=== PATIENT | female | born 1980 | race Caucasian/White ===

== ENCOUNTER 2020-09-30 11:51 | Emergency (ER) | payer OTHER, BC, SELFPAY ==
--- NOTE | ~2020-09-30 | CT_ITS ---
EXAMINATION: CT brain wo con EXAM DATE: 09/30/2020 12:05 INDICATION: Traumatic head injury, pressure and difficulty concentrating . Right black eye. Nausea. TECHNIQUE: Spiral CT of the head was performed without contrast. Axial, coronal and sagittal images were reviewed. The dose-length product (DLP) for this examination was 605.33 mGy-cm. The exposure w as tailored according to patient size, and iterative reconstruction (ASIR) was used as additional dos e reduction technique. There is no prior study for comparison. FINDINGS: There is no acute intraparenchymal hemorrhage. No evidence of intraparenchymal brain mass lesion. No evidence of acute infarction. There is no mass effect or midline shift. The ventricles are normal in size. There are no extra-axial collections. There are no acute calvarial fractures. T he orbits are unremarkable. Soft tissue is unremarkable. The visualized sinuses and mastoid air feliberto ls are well aerated. IMPRESSION: 1. Normal head CT examination. Reviewed, dictated and finalized at location [facility]
--- NOTE | 2020-09-30 11:57 | PC.NURSE ---
Order for CT Placed after conversation with MARTA Moralez and verbal order for CT Brain w/o contrast was received and read back to him. I then called the charge nurse to notify her of the order I received and placed.
--- NOTE | 2020-09-30 12:01 | PC.NURSE ---
Patient taken to CT at this time.
[2020-09-30 12:15] VITALS: BP 137/97; PULSE 86; RESP 16; TEMP 37.1; O2SAT 99
--- NOTE | 2020-09-30 12:41 | ED.HA ---
HPI - Headache General Chief Complaint: Head Injury Stated Complaint: pressure in her head, difficulty focusing, Time Seen by Provider: 09/30/20 12:27 Source: patient Mode of arrival: ambulatory Limitations: no limitations History of Present Illness HPI Narrative: Patient is a 40-year-old female complaining of head pressure, 6 out of 10, generalized, nonradiating accompanied by nausea and dizziness started 2 days ago. Patient states that she hit her head approximately 5 days ago causing her to have a bruise on her right frontal head and right periorbital area. Patient states that her dog hit the right side of her face as she was bending over felt dizzy right after, seeing stars . Denies any loss of consciousness. Denies any speech or visual disturbance, weakness, numbness or unsteady gait. Denies any neck stiffness or fever. Denies any head injury. Related Data Home Medications Medication Instructions Recorded Confirmed alprazolam 0.25 mg tablet 0.25 mg PO TID PRN 01/12/20 07/12/20 meloxicam 15 mg tablet 15 mg PO DAILY PRN 01/12/20 07/12/20 sulfasalazine 500 mg 1 gm PO BID tablet 01/12/20 07/12/20 tablet,delayed release Allergies Allergy/AdvReac Type Severity Reaction Status Date / Time No Known Allergies Allergy Unverified 08/09/19 09:57 Review of Systems Review of Systems: All systems reviewed & are unremarkable except as noted in HPI and below Constitutional: Constitutional: Denies body ache(s), Denies chills, Denies excessive sweating, Denies fatigue, Denies fever(s), Denies lethargy, Denies malaise, Denies weakness and Denies weight loss Eyes: Eyes: Denies blurry vision, Denies change in vision and Denies loss of vision ENT: Denies dizziness, Denies ear discharge, Denies headache(s), Denies lip swelling, Denies epistaxis, Denies nasal congestion, Denies neck pain, Denies throat swelling and Denies tongue swelling Cardiovascular: Cardiovascular: Denies chest pain, Denies chest pain at rest, Denies chest pain with activity, Denies diaphoresis, Denies rapid heart rate, Denies edema, Denies irregular heart rhythm, Denies lightheadedness, Denies palpitations, Denies dyspnea and Denies dyspnea on exertion Respiratory: Respiratory: Denies chest congestion, Denies cough, Denies hemoptysis, Denies dyspnea and Denies dyspnea on exertion Gastrointestinal: Gastrointestinal: Denies abdominal pain, Denies melena, Denies hematochezia, Denies diarrhea, Denies nausea, Denies vomiting and Denies hematemesis Musculoskeletal: Musculoskeletal: Denies abnormal gait, Denies deformity, Denies joint swelling, Denies limited range of motion, Denies neck pain and Denies numbness Neurologic: Denies Abnormal speech present, Denies abnormal gait, Denies confusion, Denies dizziness, Denies focal weakness, Denies loss of vision, Denies numbness, Denies Other visual disturbances, Denies Sensory deficit (Neuro) and Denies weakness Psychiatric: Psychiatric: Denies confusion, Denies depression, Denies auditory hallucinations, Denies homicidal ideation and Denies suicidal ideation Endocrine: Endocrine: Denies cold intolerance, Denies excessive sweating, Denies fatigue, Denies heat intolerance and Denies palpitations Hematologic/Lymphatic: Hematologic/Lymphatic: Denies easy bleeding and Denies easy bruising Allergic/Immunologic: Allergic/Immunologic: Denies lip swelling, Denies throat swelling and Denies tongue swelling [facility] Past Medical History Medical History (Updated 09/30/20 @ 14:06 by Ronaldo Oliveira MD) ADHD (attention deficit hyperactivity disorder), inattentive type Allergic asthma with acute exacerbation Chronic anxiety Chronic bilateral low back pain with bilateral sciatica Exposure to COVID-19 virus Moderate persistent asthma, uncomplicated Family History Family History (Updated 09/09/19 @ 13:20 by DOCTOR UNKNOWN) Grandparent Hypertension Family history of elevated blood lipids Cerebrovascular accident Carcinoma of c
--- NOTE | 2020-09-30 13:45 | PC.NURSE ---
Called to patient's room, states that she really needs to go and cannot wait for blood work and IVF and IV pain medications. Reports has to pick up worker her son. States I didn't think it would be this big of a deal; I only came because my doctor and made me. My CT is fine, I'm sure I'm ok . Dr. Oliveira made aware.
--- NOTE | 2020-09-30 14:00 | PC.NURSE ---
Pt signs AMA form after this RN explained the risks. Pt encouraged to come back if dizziness, headache, or vomiting are unrelenting in nature and continue. Pt verbalizes understanding. Refuses assist to exit.
== END 2020-09-30 14:10 | disposition left against medical advice (07) ==
PROVIDERS: Emergency Provider Emergency Medicine; PCP Family Medicine
DX: S06.0X0A Concussion without loss of consciousness, initial encounter (principal); F90.9 Attention-deficit hyperactivity disorder, unspecified type; F41.9 Anxiety disorder, unspecified; J45.40 Moderate persistent asthma, uncomplicated; W54.1XXA Struck by dog, initial encounter
CPT/HCPCS: 70450; 99284

== ENCOUNTER 2020-11-09 06:54 | Outpatient (NON) | payer OTHER, SELFPAY ==
[2020-11-09 18:06] LABS: SARS-CoV-2 RNA PCR Negative
== END 2020-11-09 06:55 ==
LOC: ANHCOVIDDT 06:54
PROVIDERS: PCP Family Medicine; Visit Provider Family Medicine
DX: J01.00 Acute maxillary sinusitis, unspecified (principal); Z20.828 Contact with and (suspected) exposure to other viral communicable diseases
CPT/HCPCS: 87635; C9803; U0003

== ENCOUNTER → 2022-02-17 00:23 | Outpatient (CLI) | payer OTHER, SELFPAY ==
[2022-02-17 13:15] LABS: SARS-CoV-2 RNA PCR Negative
== END ==
PROVIDERS: PCP Family Medicine; Visit Provider Internal Medicine Gastroenterology
DX: Z01.812 Encounter for preprocedural laboratory examination (principal); Z20.822 Contact with and (suspected) exposure to COVID-19
CPT/HCPCS: C9803; U0003; U0005

== ENCOUNTER 2022-02-21 01:39 | Day surgery (SDC) | payer OTHER, SELFPAY ==
[2022-02-14 09:46] VITALS: BMI 25.1
--- NOTE | 2022-02-21 08:18 | WPDANESEPPF ---
Anes - Initial Pre Proc Eval Procedure: Operation Date: 02/21/22 10:30 Proposed Procedures p Esophagogastroduodenoscopy & Colonoscopy - Jesus Gan MD Date/Time: 02/21/22 08:18 Surgeon: Jesus Gan MD Pre Op Diagnosis: bloating, diarrhea, abdominal pain Patient Data Age: 41 Gender: F Height: 1.73 m Weight: 75 kg Allergies Allergy/AdvReac Type Severity Reaction Status Date / Time No Known Allergies Allergy Verified 02/21/22 09:22 Home Medications Medication Instructions Recorded Confirmed Type nebulizer accessories #1 each 03/29/20 02/21/22 Rx nebulizers #1 each 03/29/20 02/21/22 Rx peak flow meter #1 each 03/29/20 02/21/22 Rx albuterol sulfate 1.25 mg/3 mL 1.25 mg INHALATION Q4-6H PRN #180 04/27/21 02/21/22 Rx solution for nebulization ml duloxetine 30 mg capsule,delayed 30 mg PO DAILY #90 cap 04/27/21 02/21/22 Rx release albuterol sulfate 90 mcg/actuation 1 inh INHALATION Q4H PRN #8.5 g 07/05/21 02/21/22 Rx aerosol inhaler budesonide-formoterol HFA 160 2 puff INHALATION Q12H #10.2 g 10/04/21 02/21/22 Rx mcg-4.5 mcg/actuation aerosol inhaler Adderall XR 20 mg capsule,extended 20 mg PO DAILY #30 cap NS 01/25/22 02/21/22 Rx release Patient hx anesthesia problems: none Family hx anesthesia problems: none Results Review: All pre-operative results and documents have been reviewed as part of the pre-operative evaluation. [facility] Past Medical History Medical History (Updated 01/04/22 @ 11:22 by Jesus Gan MD) Abdominal pain Acute non-recurrent maxillary sinusitis ADHD (attention deficit hyperactivity disorder), inattentive type Allergic asthma with acute exacerbation Bloating Cellulitis, finger Chronic anxiety Chronic bilateral low back pain with bilateral sciatica Chronic depression Concussion without loss of consciousness, initial encounter COVID-19 (05/27/21) Diarrhea Exposure to COVID-19 virus Moderate persistent asthma, uncomplicated Nausea and vomiting Family History Family History Grandparent Hypertension Family history of malignant neoplasm of breast in first degree relative Family history of elevated blood lipids Cerebrovascular accident Carcinoma of colon, Onset Age: 78 Family history of malignant neoplasm of breast, Onset Age: 76 Diabetes mellitus Family history of hypercholesterolemia Family history of arthritis Family history of Alzheimer's disease Father Hypertension Patient's father is Mother Depression Hypertension Sibling Patient's brother is in good health Social History Social History Smoking status: Former smoker Tobacco type: cigarettes Second hand tobacco smoke exposure: No Alcohol intake: former Substance use type: does not use Living arrangements: alone Gender identity (if verbalized by the patient): Female Spiritual care concerns: No Anes - Eval Final PreProcedure Day of Procedure 02/21/22 08:18 Patient weight: normal Heart: regular rate and rhythm Lungs: clear to auscultation and normal air movement Airway: Mallampati scale class II Neurological: alert and oriented Last oral intake: >/= 8 hours ASA classification: II Emergent: no Anesthetic plan: proceed Anesthesia type and monitoring: general GIVS Results Review: All pre-operative results and documents have been reviewed as part of the pre-operative evaluation. Informed Consent: The patient's anesthetic plan and its attendant risks and benefits were discussed with the patient/family/POA. Questions were solicited and answers provided to the satisfaction of the patient/family/POA.
[2022-02-21 09:15] VITALS: BP 121/82; PULSE 73; RESP 18; TEMP 36.5; O2SAT 98; BMI 25.6
[2022-02-21] MEDS: LACTATED RINGERS 1,000 ML 150 ML IV CONT (09:39)
--- NOTE | 2022-02-21 09:55 | PM.HPGS ---
History of Present Illness History of Present Illness Consent: Risks, benefits, and alternatives have been discussed and questions answered. Patient agrees to proceed with procedure. Chief complaint: bloating, diarrhea, abdominal pain Narrative: Archana Jack is a 41 year old female with nausea and loose stools depending on her diet. Since last visit the nausea is better, tried second round of xifaxan with marginal benefit but still tends to have loose stools. Never had colonoscopy Review of Systems Constitutional: Constitutional: Denies headache(s) and Denies weakness Eyes: Eyes: Denies blurry vision ENT: Reports Normal hearing present, Denies headache(s) and Denies neck pain Cardiovascular: Cardiovascular: Denies chest pain and Denies dyspnea Respiratory: Respiratory: Denies dyspnea Gastrointestinal: Gastrointestinal: Reports no additional gastrointestinal complaints Genitourinary: Genitourinary: Denies dysuria Musculoskeletal: Musculoskeletal: Denies neck pain Integumentary/Breasts: Skin/Breast: Denies dry skin Neurologic: Reports Normal hearing present, Denies headache(s) and Denies weakness Psychiatric: Psychiatric: Denies anxiety Endocrine: Endocrine: Denies change in body appearance Hematologic/Lymphatic: Hematologic/Lymphatic: Denies easy bleeding Allergic/Immunologic: Allergic/Immunologic: Denies urticaria PMFSH Past Medical History Medical History (Updated 01/04/22 @ 11:22 by Jesus Gan MD) Abdominal pain Acute non-recurrent maxillary sinusitis ADHD (attention deficit hyperactivity disorder), inattentive type Allergic asthma with acute exacerbation Bloating Cellulitis, finger Chronic anxiety Chronic bilateral low back pain with bilateral sciatica Chronic depression Concussion without loss of consciousness, initial encounter COVID-19 (05/27/21) Diarrhea Exposure to COVID-19 virus Moderate persistent asthma, uncomplicated Nausea and vomiting Family History Family History Grandparent Hypertension Family history of malignant neoplasm of breast in first degree relative Family history of elevated blood lipids Cerebrovascular accident Carcinoma of colon, Onset Age: 78 Family history of malignant neoplasm of breast, Onset Age: 76 Diabetes mellitus Family history of hypercholesterolemia Family history of arthritis Family history of Alzheimer's disease Father Hypertension Patient's father is Mother Depression Hypertension Sibling Patient's brother is in good health Social History Social History Smoking status: Former smoker Tobacco type: cigarettes Second hand tobacco smoke exposure: No Alcohol intake: former Substance use type: does not use Living arrangements: alone Gender identity (if verbalized by the patient): Female Spiritual care concerns: No Meds Home Medications and Allergies Home Medications Medication Instructions Recorded Confirmed Type nebulizer accessories #1 each 03/29/20 02/21/22 Rx nebulizers #1 each 03/29/20 02/21/22 Rx peak flow meter #1 each 03/29/20 02/21/22 Rx albuterol sulfate 1.25 mg/3 mL 1.25 mg INHALATION Q4-6H PRN #180 04/27/21 02/21/22 Rx solution for nebulization ml duloxetine 30 mg capsule,delayed 30 mg PO DAILY #90 cap 04/27/21 02/21/22 Rx release albuterol sulfate 90 mcg/actuation 1 inh INHALATION Q4H PRN #8.5 g 07/05/21 02/21/22 Rx aerosol inhaler budesonide-formoterol HFA 160 2 puff INHALATION Q12H #10.2 g 10/04/21 02/21/22 Rx mcg-4.5 mcg/actuation aerosol inhaler Adderall XR 20 mg capsule,extended 20 mg PO DAILY #30 cap NS 01/25/22 02/21/22 Rx release Allergies Allergy/AdvReac Type Severity Reaction Status Date / Time No Known Allergies Allergy Verified 02/21/22 09:22 Vital Signs Vital Signs - 24 hr 02/21/22 09:15 Temperature 97.7
[2022-02-21 10:23] VITALS: BP 129/66; PULSE 78; RESP 15; O2SAT 100
[2022-02-21 10:33] VITALS: BP 127/65; PULSE 73; RESP 16; O2SAT 100
--- NOTE | 2022-02-21 10:33 | SUR.OPER ---
EGD START: 59; END 1004. COLONOSCOPY START: 1009; END: 1018.
[2022-02-21 10:43] VITALS: BP 119/84; PULSE 67; RESP 24; O2SAT 100
== END 2022-02-21 10:50 | disposition home or self-care (01) ==
PROVIDERS: PCP Family Medicine; Visit Provider Internal Medicine Gastroenterology
PROC: 0DJ08ZZ Inspection of Upper Intestinal Tract, Via Natural or Artificial Opening Endoscopic (ICD-10-PCS; CPT 43235; principal; 2022-02-21 10:30)
DX: Z12.11 Encounter for screening for malignant neoplasm of colon (principal); K58.0 Irritable bowel syndrome with diarrhea; K64.8 Other hemorrhoids; K22.70 Barrett's esophagus without dysplasia; K44.9 Diaphragmatic hernia without obstruction or gangrene; K29.50 Unspecified chronic gastritis without bleeding; K21.9 Gastro-esophageal reflux disease without esophagitis; F90.0 Attention-deficit hyperactivity disorder, predominantly inattentive type; F41.8 Other specified anxiety disorders; J45.30 Mild persistent asthma, uncomplicated; Z79.51 Long term (current) use of inhaled steroids; Z87.891 Personal history of nicotine dependence
CPT/HCPCS: 45380; 43239; 88305; 88342; C9803; J2704; J7120; U0003; U0005

== ENCOUNTER 2023-04-03 05:44 | Day surgery (SDC) | payer BC, SELFPAY ==
[2023-03-27 09:30] VITALS: BMI 25.9
[2023-04-03 08:37] VITALS: BP 107/77; PULSE 68; RESP 16; TEMP 36.1; O2SAT 100; BMI 25.1
[2023-04-03] MEDS: LACTATED RINGERS 1,000 ML 150 ML IV CONT (08:52)
--- NOTE | 2023-04-03 09:13 | WPDANESEPPF ---
Anes - Initial Pre Proc Eval Procedure: Operation Date: 04/03/23 09:45 Proposed Procedures p Esophagogastroduodenoscopy - Jesus Gan MD Date/Time: 04/03/23 09:13 Surgeon: Jesus Gan MD Pre Op Diagnosis: parry's Esophagus Patient Data Age: 42 Gender: F Height: 1.7 m Weight: 72.7 kg Last Vital Signs Temp 97 F L 04/03/23 08:37 Pulse 68 04/03/23 08:37 Resp 16 04/03/23 08:37 BP 107/77 04/03/23 08:37 Pulse Ox 100 04/03/23 08:37 O2 Del Method Room Air 04/03/23 08:37 Allergies Allergy/AdvReac Type Severity Reaction Status Date / Time No Known Allergies Allergy Verified 04/03/23 08:35 Home Medications Medication Instructions Recorded Confirmed Type nebulizer accessories #1 ea 03/29/20 04/03/23 Rx nebulizers (VixOne Nebulizer-Adult #1 ea 03/29/20 04/03/23 Rx Mask) peak flow meter (Peak Air Peak #1 ea 03/29/20 04/03/23 Rx Flow Meter) omeprazole 40 mg capsule,delayed 40 mg PO DAILY #30 caps 02/21/22 04/03/23 Rx release albuterol sulfate 1.25 mg/3 mL 1.25 mg (3 mL) inhalation Q4-6H 08/09/22 04/03/23 Rx solution for nebulization PRN shortness of breath or wheezing #180 mL dicyclomine 10 mg capsule 10 mg PO BID PRN cramping #60 caps 11/08/22 04/03/23 Rx sulfasalazine 500 mg tablet 0.5 g PO Q6H 1 month #120 tabs 11/08/22 04/03/23 Rx albuterol sulfate 90 mcg/actuation 1 inh inhalation Q4H PRN shortness 11/27/22 04/03/23 Rx aerosol inhaler (ProAir HFA) of breath or wheezing #8.5 grams sertraline 25 mg tablet 25 mg PO DAILY #30 tabs 02/08/23 04/03/23 Rx dextroamphetamine-amphetamine 10 10 mg PO BID #60 tabs 03/12/23 04/03/23 Rx mg tablet (Adderall) budesonide-formoterol HFA 160 2 puff inhalation DAILY 03/27/23 04/03/23 History mcg-4.5 mcg/actuation aerosol inhaler (Symbicort) Patient hx anesthesia problems: none Family hx anesthesia problems: none Results Review: All pre-operative results and documents have been reviewed as part of the pre-operative evaluation. [facility] Past Medical History Medical History (Updated 11/20/22 @ 13:32 by Fly Arcos MD) Abdominal pain Acute non-recurrent maxillary sinusitis ADHD (attention deficit hyperactivity disorder), inattentive type Allergic asthma with acute exacerbation Parry esophagus Parry's esophagus with esophagitis (02/21/22) 6 cm area of Parry's esophagitis distal esophagus with hiatal hernia and mild gastritis on EGD 02/21/2022 . Repeat in 1 year. Bloating BMI 25.0-25.9,adult Cellulitis, finger Chronic anxiety Chronic bilateral low back pain with bilateral sciatica Chronic depression Colitis Concussion without loss of consciousness, initial encounter COVID-19 (05/27/21) COVID-19 (06/06/22) 2nd episode with positive test 06/08/2022. 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 on colonoscopy 02/21/2022 Moderate persistent asthma, uncomplicated Nausea and vomiting Overweight (BMI 25.0-29.9) Family History Family History Grandparent Hypertension Family history of elevated blood lipids Cerebrovascular accident Carcinoma of colon, Onset Age: 78 Family history of malignant neoplasm of breast, Onset Age: 76 Diabetes mellitus Family history of hypercholesterolemia Family history of arthritis Family history of Alzheimer's disease Family history of malignant neoplasm of breast in first degree relative Father Hypertension Patient's father is Mother Depression Hypertension Sibling Patient's brother is in good health Social History Social History Smoking status: Former smoker Tobacco type: cigarettes Second hand tobacco smoke exposure: No Alcohol intake: former Substance use type: does not use Lack of Transportation: No
--- NOTE | 2023-04-03 09:18 | P.PNAN_ITS ---
Anes - Initial Pre Proc Eval Procedure: Operation Date: 04/03/23 09:45 Proposed Procedures p Esophagogastroduodenoscopy - Jesus Gan MD Date/Time: 04/03/23 09:18 Surgeon: Jesus Gan MD Pre Op Diagnosis: parry's Esophagus Patient Data Age: 42 Gender: F Height: 1.7 m Weight: 72.7 kg Last Vital Signs Temp 97 F L 04/03/23 08:37 Pulse 68 04/03/23 08:37 Resp 16 04/03/23 08:37 BP 107/77 04/03/23 08:37 Pulse Ox 100 04/03/23 08:37 O2 Del Method Room Air 04/03/23 08:37 Allergies Allergy/AdvReac Type Severity Reaction Status Date / Time No Known Allergies Allergy Verified 04/03/23 08:35 Home Medications Medication Instructions Recorded Confirmed Type nebulizer accessories #1 ea 03/29/20 04/03/23 Rx nebulizers (VixOne Nebulizer-Adult #1 ea 03/29/20 04/03/23 Rx Mask) peak flow meter (Peak Air Peak #1 ea 03/29/20 04/03/23 Rx Flow Meter) omeprazole 40 mg capsule,delayed 40 mg PO DAILY #30 caps 02/21/22 04/03/23 Rx release albuterol sulfate 1.25 mg/3 mL 1.25 mg (3 mL) inhalation Q4-6H 08/09/22 04/03/23 Rx solution for nebulization PRN shortness of breath or wheezing #180 mL dicyclomine 10 mg capsule 10 mg PO BID PRN cramping #60 caps 11/08/22 04/03/23 Rx sulfasalazine 500 mg tablet 0.5 g PO Q6H 1 month #120 tabs 11/08/22 04/03/23 Rx albuterol sulfate 90 mcg/actuation 1 inh inhalation Q4H PRN shortness 11/27/22 04/03/23 Rx aerosol inhaler (ProAir HFA) of breath or wheezing #8.5 grams sertraline 25 mg tablet 25 mg PO DAILY #30 tabs 02/08/23 04/03/23 Rx dextroamphetamine-amphetamine 10 10 mg PO BID #60 tabs 03/12/23 04/03/23 Rx mg tablet (Adderall) budesonide-formoterol HFA 160 2 puff inhalation DAILY 03/27/23 04/03/23 History mcg-4.5 mcg/actuation aerosol inhaler (Symbicort) Patient hx anesthesia problems: none Family hx anesthesia problems: none Results Review: All pre-operative results and documents have been reviewed as part of the pre- operative evaluation. [facility] Past Medical History Medical History (Updated 11/20/22 @ 13:32 by Fly Arcos MD) Abdominal pain Acute non-recurrent maxillary sinusitis ADHD (attention deficit hyperactivity disorder), inattentive type Allergic asthma with acute exacerbation Parry esophagus Parry's esophagus with esophagitis (02/21/22) 6 cm area of Parry's esophagitis distal esophagus with hiatal hernia and mild gastritis on EGD 02/21/2022 . Repeat in 1 year. Bloating BMI 25.0-25.9,adult Cellulitis, finger Chronic anxiety Chronic bilateral low back pain with bilateral sciatica Chronic depression Colitis Concussion without loss of consciousness, initial encounter COVID-19 (05/27/21) COVID-19 (06/06/22) 2nd episode with positive test 06/08/2022. 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
--- NOTE | 2023-04-03 09:30 | PM.HPGS ---
History of Present Illness History of Present Illness Consent: Risks, benefits, and alternatives have been discussed and questions answered. Patient agrees to proceed with procedure. Chief complaint: parry's Esophagus Narrative: Archana Jack is a 42 year old female with gerd and parry's without dysplasia controlled with ppi daily. Review of Systems Constitutional: Constitutional: Denies headache(s) and Denies weakness Eyes: Eyes: Denies blurry vision ENT: Reports Normal hearing present, Denies headache(s) and Denies neck pain Cardiovascular: Cardiovascular: Denies chest pain and Denies dyspnea Respiratory: Respiratory: Denies dyspnea Gastrointestinal: Gastrointestinal: Reports no additional gastrointestinal complaints Genitourinary: Genitourinary: Denies dysuria Musculoskeletal: Musculoskeletal: Denies neck pain Integumentary/Breasts: Skin/Breast: Denies dry skin Neurologic: Reports Normal hearing present, Denies headache(s) and Denies weakness Psychiatric: Psychiatric: Denies anxiety Endocrine: Endocrine: Denies change in body appearance Hematologic/Lymphatic: Hematologic/Lymphatic: Denies easy bleeding Allergic/Immunologic: Allergic/Immunologic: Denies urticaria PMFSH Past Medical History Medical History (Updated 11/20/22 @ 13:32 by Fly Arcos MD) Abdominal pain Acute non-recurrent maxillary sinusitis ADHD (attention deficit hyperactivity disorder), inattentive type Allergic asthma with acute exacerbation Parry esophagus Parry's esophagus with esophagitis (02/21/22) 6 cm area of Parry's esophagitis distal esophagus with hiatal hernia and mild gastritis on EGD 02/21/2022 . Repeat in 1 year. Bloating BMI 25.0-25.9,adult Cellulitis, finger Chronic anxiety Chronic bilateral low back pain with bilateral sciatica Chronic depression Colitis Concussion without loss of consciousness, initial encounter COVID-19 (05/27/21) COVID-19 (06/06/22) 2nd episode with positive test 06/08/2022. 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 on colonoscopy 02/21/2022 Moderate persistent asthma, uncomplicated Nausea and vomiting Overweight (BMI 25.0-29.9) Family History Family History Grandparent Hypertension Family history of elevated blood lipids Cerebrovascular accident Carcinoma of colon, Onset Age: 78 Family history of malignant neoplasm of breast, Onset Age: 76 Diabetes mellitus Family history of hypercholesterolemia Family history of arthritis Family history of Alzheimer's disease Family history of malignant neoplasm of breast in first degree relative Father Hypertension Patient's father is Mother Depression Hypertension Sibling Patient's brother is in good health Social History Social History Smoking status: Former smoker Tobacco type: cigarettes Second hand tobacco smoke exposure: No Alcohol intake: former Substance use type: does not use Lack of Transportation: No Lack of Food: Never True Current Housing: I Have Housing Concerned About Future Housing: No Difficulty Paying Gas/Electric Bills: No Difficulty Paying for Meds: No Currently Unemployed: YES Education: High School Diploma/GED Difficulty w/ Childcare or Family Care: No Living arrangements: with family Gender identity (if verbalized by the patient): Female Spiritual care concerns: No Meds Home Medications and Allergies Home Medications Medication Instructions Recorded Confirmed Type nebulizer accessories #1 ea 03/29/20 04/03/23 Rx nebulizers (VixOne Nebulizer-Adult #1 ea 03/29/20 04/03/23 Rx Mask) peak flow meter (Peak Air Peak #1 ea 03/29/20 04/03/23 Rx Flow Meter) omeprazole 40 mg capsule,delayed 40 mg PO DAILY #30 caps 02/21/22
[2023-04-03 09:47] VITALS: BP 99/67; PULSE 78; RESP 19; O2SAT 99
[2023-04-03 09:57] VITALS: BP 105/72; PULSE 71; RESP 18; O2SAT 98
[2023-04-03 10:07] VITALS: BP 105/76; PULSE 69; RESP 15; O2SAT 100
== END 2023-04-03 10:14 | disposition home or self-care (01) ==
PROVIDERS: PCP Family Medicine; Visit Provider Internal Medicine Gastroenterology
PROC: 0DJ08ZZ Inspection of Upper Intestinal Tract, Via Natural or Artificial Opening Endoscopic (ICD-10-PCS; CPT 43235; principal; 2023-04-03 09:45)
DX: K22.710 Barrett's esophagus with low grade dysplasia (principal); K44.9 Diaphragmatic hernia without obstruction or gangrene; K21.9 Gastro-esophageal reflux disease without esophagitis; F90.0 Attention-deficit hyperactivity disorder, predominantly inattentive type; F41.9 Anxiety disorder, unspecified; F32.A Depression, unspecified; J45.40 Moderate persistent asthma, uncomplicated; Z87.891 Personal history of nicotine dependence; Z79.51 Long term (current) use of inhaled steroids
CPT/HCPCS: 43239; 88305; J2704; J7120

== ENCOUNTER 2024-10-15 12:59 | Emergency (ER) | payer BC, SELFPAY ==
--- NOTE | ~2024-10-15 | XR_ITS ---
EXAMINATION: XR chest 2V DATE: 10/15/2024 14:14 INDICATION: Productive cough TECHNIQUE: PA and lateral views of the chest were obtained. COMPARISON: Chest radiograph dated 02/10/2019 FINDINGS: The lungs are clear with no focal airspace opacities, pulmonary edema, pleural effusion or pneumothor ax. The cardiomediastinal silhouette is normal. Cholecystectomy clips in right upper quadrant. Mild t o moderate thoracic spondylosis. IMPRESSION: 1. No acute cardiopulmonary disease. Reviewed, dictated and finalized at location B. SAW OPERATOR
[2024-10-15 13:09] VITALS: BP 129/84; PULSE 84; RESP 16; TEMP 37.1; O2SAT 100
--- NOTE | 2024-10-15 14:40 | ED.URI ---
HPI - URI/Sore Throat General Chief Complaint: Upper Respiratory Infection Stated Complaint: cough,chills,burning in chest asthmatic Time Seen by Provider: 10/15/24 14:40 Source: patient, RN notes reviewed and old records reviewed Mode of arrival: ambulatory Limitations: no limitations History of Present Illness HPI Narrative: patient with asthma, household members with pneumonia, presents with complaints of cough and wheezing for the past few days. She denies any fever, chills, sweats. She does affirm lack of energy, using nebulizer more than normal. She denies any shortness of breath. She does report the cough is sometimes productive and she has a burning sensation with cough. She is in no distress, speaking in full sentences with no difficulty Related Data Home Medications Medication Instructions Recorded Confirmed budesonide-formoterol HFA 160 2 puff inhalation DAILY 03/27/23 10/15/24 mcg-4.5 mcg/actuation aerosol inhaler (Symbicort) Allergies Allergy/AdvReac Type Severity Reaction Status Date / Time No Known Allergies Allergy Verified 10/15/24 13:07 Review of Systems Review of Systems: All systems reviewed & are unremarkable except as noted in HPI and below Constitutional: Constitutional: Reports no additional constitutional complaints ENT: Reports system reviewed and no additional complaints, except as documented Cardiovascular: Cardiovascular: Reports no additional cardiovascular complaints Respiratory: Respiratory: Reports no additional respiratory complaints, Reports change in phlegm color, Reports chest congestion, Reports cough and Reports wheezing Gastrointestinal: Gastrointestinal: Reports no additional gastrointestinal complaints PMFSH Past Medical History Medical History Abdominal pain Acute non-recurrent maxillary sinusitis ADHD (attention deficit hyperactivity disorder), inattentive type Allergic asthma with acute exacerbation 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 Repeat in 1 year. Castro's esophagus 04/03/2023. Bloating BMI 25.0-25.9,adult Breast cancer screening by mammogram Cellulitis, finger Chronic anxiety Chronic bilateral low back pain with bilateral sciatica Chronic depression Colitis Concussion without loss of consciousness, initial encounter COVID-19 (05/27/21) COVID-19 (06/06/22) 2nd episode with positive test 06/08/2022. 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 on colonoscopy 02/21/2022 Moderate persistent asthma, uncomplicated Nausea and vomiting Overweight (BMI 25.0-29.9) Family History Family History Grandparent Hypertension Family history of elevated blood lipids Cerebrovascular accident Carcinoma of colon, Onset Age: 76 Family history of malignant neoplasm of breast, Onset Age: 76 Diabetes mellitus Family history of hypercholesterolemia Family history of arthritis Family history of Alzheimer's disease Family history of malignant neoplasm of breast in first degree relative Father Hypertension Patient's father is Mother Depression Hypertension Sibling Patient's brother is in good health Social History Social History Smoking status: Former smoker Tobacco type: cigarettes Second hand tobacco smoke exposure: No Alcohol intake: former Substance use type: does not use Lack of Transportation: No Lack of Food: Never True Current Housing: I Have Housing Concerned About Future Housing: No Difficulty Paying Gas/Electric Bills: No Difficulty Paying for Meds: No Currently Unemployed: YES Education: High School Diploma/GED Difficulty w/ Childcare or Family Care: No Living arrangements: with family Gender identity (if verbalized by the patient): Female Spiritual care concerns: No Comments At the time of my signature, I reviewed and agree with the nursing past medical, surgical, social, and family history. There is no relevant family history pertinent to the patient complaint. Exam Const: General: cooperative, no acute distress, alert and awake Orientation/consciousness: oriented to person, oriented to place and oriented to time HENMT: Head: normal to inspection Mouth: Yes moist mucous membranes Resp: Effort & Inspection: normal respiratory effort and able to speak in complete sentences Auscultation: clear to auscultation bilaterally, no crackles, no rales, no rhonchi, no wheezes and diminished lung sounds Cardio: Palpation: normal PMI Rate: regular rate Rhythm: regular rhythm Heart sounds: S1 normal heart sound present and S2 normal heart sound present Neuro: General: oriented to person, oriented to place and oriented to time Cranial nerves: Yes CN's II-XII intact bilaterally Psych: Appearance: grossly normal Thought process: Normal thought process present Insight: Good insight present (Psych) Judgement: Good judgement present (Psych) Course Course Level of Care: Express Care Visit Vital Signs Vital signs: Vital Signs Temperature 98.8 F 10/15/24 13:09 Pulse Rate 84 10/15/24 13:09 Respiratory Rate 16 10/15/24 13:09 Blood Pressure 129/84 10/15/24 13:09 Pulse Oximetry 100 10/15/24 13:09 Oxygen Delivery Room Air 10/15/24 13:09 Temperature 98.8 F 10/15/24 13:09 Pulse Rate 84 10/15/24 13:09 Respiratory Rate 16 10/15/24 13:09 Blood Pressure 129/84 10/15/24 13:09 Pulse Oximetry 100 10/15/24 13:09 Oxygen Delivery Room Air 10/15/24 13:09 Reviewed MDM - URI/Sore Throat Imaging Data My impression: negative Radiologist's impression: Express Care [place] [id number] [place] [id number] XRay Report Signed Patient: Archana Jack : 1980 MR#: [id number] Age: 44 Acct:[id number] Loc: [facility] ADM Date: 10/15/24Attending Dr: Ordering Physician: Kassie Narvaez FNP Date of Service: 10/15/24 Procedure(s): XR chest 2V Accession Number(s): [id number] cc: Kassie Narvaez FNP; Fly Arcos MD~ EXAMINATION: XR chest 2V DATE: 10/15/2024 14:14 INDICATION: Productive cough TECHNIQUE: PA and lateral views of the chest were obtained. COMPARISON: Chest radiograph dated 02/10/2019 FINDINGS: The lungs are clear with no focal airspace opacities, pulmonary edema, pleural effusion or pneumothorax. The cardiomediastinal silhouette is normal. Cholecystectomy clips in right upper quadrant. Mild to moderate thoracic spondylosis. IMPRESSION: 1. No acute cardiopulmonary disease. Reviewed, dictated and finalized at location B. END HELPER Dictated By: Luca Onofre MD 10/15/24 1429 Signed By: <Electronically signed by Luca Onofre MD in OV> Discharge Plan Discharge Clinical Impression: Asthma Qualifiers: Asthma severity: unspecified severity Asthma persistence: unspecified Asthma complication type: with acute exacerbation Qualified Code(s): J45.901 - Unspecified asthma with (acute) exacerbation Patient Disposition: Home, Self-Care Condition: Stable Instructions: Antibiotic Form, Community Acquired Pneumonia (ED) Additional Instructions: take medication as prescribed. Follow with primary care provider. Emergency department for new or worse symptoms Patient Language: Greek Prescriptions: New azithromycin 250 mg tablet See Rx Instructions .ROUTE .COMPLEX Qty: 6 0RF Rx Instructions: For 250 mg dose pack: take 500 mg today (day 1), then 250 mg for 4 days (days 2-5) prednisone 50 mg tablet 50 mg PO DAILY Qty: 5 0RF albuterol sulfate 1.25 mg/3 mL solution for nebulization 1.25 mg inhalation Q4H PRN (Reason: shortness of breath or wheezing) Qty: 90 0RF No Action sertraline 50 mg tablet 50 mg PO . q.h.s. Qty: 30 11RF (DME) Peak Air Peak Flow Meter Device See Rx Instructions .ROUTE .MEDSUPPLY Qty: 1 0RF Rx Instructions: use daily (DME) VixOne Nebulizer-Adult Mask Misc See Rx Instructions .ROUTE .MEDSUPPLY Qty: 1 0RF Rx Instructions: As directed (DME) nebulizer accessories Misc See Rx Instructions .ROUTE .MEDSUPPLY Qty: 1 0RF Rx Instructions: As directed sulfasalazine 500 mg tablet 0.5 g PO Q6H 30 Days Qty: 120 11RF Rx Instructions: give with food (meal/snack) dicyclomine 10 mg capsule 10 mg PO BID PRN (Reason: cramping) Qty: 60 3RF budesonide-formoterol [Symbicort] 160-4.5 mcg/actuation HFA aerosol inhaler 2 puff inhalation DAILY albuterol sulfate 1.25 mg/3 mL solution for nebulization 1.25 mg INHALATION Q4-6H PRN (Reason: shortness of breath or wheezing) Qty: 180 11RF albuterol sulfate [ProAir HFA] 90 mcg/actuation HFA aerosol inhaler 1 inh inhalation Q4H PRN (Reason: shortness of breath or wheezing) Qty: 8.5 11RF Rx Instructions: Ventolin is not covered. must be ProAir or Proventil albuterol inhaler for insurance purposes on [facility] diphenoxylate-atropine [Lomotil] 2.5-0.025 mg tablet 1 tablet PO TID PRN (Reason: diarrhea) Qty: 30 0RF omeprazole 40 mg capsule,delayed release(DR/EC) 40 mg PO DAILY Qty: 30 11RF dextroamphetamine-amphetamine [Adderall] 10 mg tablet 10 mg PO BID Qty: 60 0RF Rx Instructions: administer doses at least 4-6 hours apart Follow-up/Referrals: Fly Arcos MD [Primary Care Provider] - 2 Weeks Stand Alone Forms: Work/School Release IP Time of Disposition: 14:58
== END 2024-10-15 15:05 | disposition home or self-care (01) ==
PROVIDERS: Emergency Provider Nurse Practitioner Family; PCP Family Medicine
DX: J45.901 Unspecified asthma with (acute) exacerbation (principal); Z87.891 Personal history of nicotine dependence; K22.70 Barrett's esophagus without dysplasia; Z86.16 Personal history of COVID-19
CPT/HCPCS: 71046; 99213; G0463

== ENCOUNTER 2025-02-02 10:46 | Emergency (ER) | payer BC, SELFPAY ==
--- NOTE | ~2025-02-02 | XR_ITS ---
EXAMINATION: [id number] DATE: 02/02/2025 11:14 INDICATION: Right rib pain. Fall. TECHNIQUE: A frontal view of the chest and 2 views on 3 radiographs of the right ribs were obtained. COMPARISON: Chest 2 views 10/15/2024 FINDINGS: There is no pneumonia, pleural effusion, or pneumothorax. The heart size is normal. Surgica l clips in the right upper quadrant are likely from cholecystectomy. There is a fracture of right 10t h rib. IMPRESSION: 1. Right 10th rib fracture. Reviewed, dictated and finalized at location B. IMPRESSION: 1. Right 10th rib fracture.
--- NOTE | 2025-02-02 10:48 | ED.GENADULT ---
HPI - General Adult General Chief complaint: Fall Stated complaint: FALL Time Seen by Provider: 02/02/25 11:00 Source: patient, RN notes reviewed and old records reviewed Mode of arrival: ambulatory Limitations: no limitations History of Present Illness HPI narrative: 44-year-old female presents to the right lower lateral and posterior rib pain post fall Saturday night early Saturday morning. Patient reports that she was letting her dogs out when she slipped and fell. States that she fell onto her back. Denies hitting head. No loss of consciousness. No midline tenderness. No bruising or swelling noted. Has been using ice and heat as well as taking ibuprofen. Patient walking with a normal gait. Onset (ago): day(s) (1) Treatments prior to arrival: NSAID, cold therapy and heat therapy Related Data Home Medications ?Medication ?Instructions ?Recorded ?Confirmed ?Last Taken ?Type budesonide-formoterol HFA 160 2 puff inhalation DAILY 03/27/23 10/15/24 Unknown History mcg-4.5 mcg/actuation aerosol inhaler (Symbicort) Allergies Allergy/AdvReac Type Severity Reaction Status Date / Time No Known Allergies Allergy Verified 02/02/25 10:48 Review of Systems Review of Systems: All systems reviewed & are unremarkable except as noted in HPI and below Constitutional: Constitutional: Reports no additional constitutional complaints ENT: Reports system reviewed and no additional complaints, except as documented Cardiovascular: Cardiovascular: Reports no additional cardiovascular complaints, Denies chest pain and Denies dyspnea Respiratory: Respiratory: Reports no additional respiratory complaints, Denies chest congestion, Denies cough and Denies dyspnea Musculoskeletal: Musculoskeletal: Reports as per HPI Integumentary/Breasts: Skin/Breast: Reports system reviewed and no additional complaints, except as docu [facility] Past Medical History Medical History (Updated 02/02/25 @ 11:29 by Mili Elias, SANTOSH) Acute bronchitis COVID-19 (05/27/21) Exposure to COVID-19 virus Breast cancer screening by mammogram BMI 25.0-25.9,adult Overweight (BMI 25.0-29.9) COVID-19 (06/06/22) 2nd episode with positive test 06/08/2022. positive for COVID 11/27/2024. 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 Repeat in 1 year. Castro's esophagus 04/03/2023. Bloating Cellulitis, finger Chronic depression Abdominal pain Diarrhea Nausea and vomiting Acute non-recurrent maxillary sinusitis Concussion without loss of consciousness, initial encounter Chronic bilateral low back pain with bilateral sciatica Moderate persistent asthma, uncomplicated Chronic anxiety ADHD (attention deficit hyperactivity disorder), inattentive type Allergic asthma with acute exacerbation Surgical History Surgical History (Updated 02/02/25 @ 16:45 by Mili Elias APRN) Hx of cholecystectomy Family History Family History Grandparent Hypertension Family history of elevated blood lipids Cerebrovascular accident Carcinoma of colon, Onset Age: 76 Family history of malignant neoplasm of breast, Onset Age: 76 Diabetes mellitus Family history of hypercholesterolemia Family history of arthritis Family history of Alzheimer's disease Family history of malignant neoplasm of breast in first degree relative Father Hypertension Patient's father is Mother Depression Hypertension Sibling Patient's brother is in good health Social History Social History Smoking status: Former smoker Tobacco type: cigarettes Second hand tobacco smoke exposure: No Alcohol intake: former Substance use type: does not use Lack of Transportation: No Lack of Food: Never True Current Housing: I Have Housing Concerned About Future Housing: No Difficulty Paying Gas/Electric Bills: No Difficulty Paying for Meds: No Currently Unemployed: YES Education: High School Diploma/GED Difficulty w/ Childcare or Family Care: No Living arrangements: with family Gender identity (if verbalized by the patient): Female Spiritual care concerns: No Comments At the time of my signature, I reviewed and agree with the nursing past medical, surgical, social, and family history. There is no relevant family history pertinent to the patient complaint. Exam Const: General: cooperative, healthy appearing, comfortable, no acute distress, well developed, alert and well nourished Nutritional Appearance: well nourished Orientation/consciousness: patient oriented x3 Limitations: no limitations HENMT: Head: normal to inspection Mouth: Yes Normal oral and palatal mucosa present, Yes lip normal, Yes tongue normal and Yes moist mucous membranes Eyes: General: appearance normal, both eyes and all related structures Alignment and Position: alignment normal Neck: Neck: normal visual inspection, full ROM, no lymphadenopathy and no meningeal signs Chest: Chest palpation & inspection: normal inspection of the chest Resp: Effort & Inspection: normal respiratory effort and able to speak in complete sentences Auscultation: clear to auscultation bilaterally, no crackles, no rales, no rhonchi and no wheezes Cardio: Rate: regular rate GI: GI Palp: No abdominal tenderness Back/Spine/Pelvis: Back: No ecchymosis and back tenderness Cervical Spine: normal cervical lordosis Thoracic/Lumbar Spine: No thoracic spinal tenderness and No lumbar spinal tenderness Back/spine/pelvis image:  1. Tenderness to palpation without erythema, ecchymosis or swelling. Skin: General skin exam: normal color and no rashes or lesions noted Neuro: General: patient oriented x3, gait normal, moves all extremities and no meningeal signs Cognition (Neuro): normal cognition Speech: normal speech Gait exam (Neuro): Normal gait present Extrem: General: normal to inspection, full ROM, capillary refill normal and normal gait Psych: Appearance: grossly normal and well kempt Mental Status: mental status grossly normal Speech and movement: Normal speech and movement present and Clear speech present Affect: normal affect Attitude: cooperative Course Course Level of Care: Express Care Visit Vital Signs Vital signs: Vital Signs Temperature 98.1 F 02/02/25 10:59 Pulse Rate 94 02/02/25 10:59 Respiratory Rate 16 02/02/25 10:59 Blood Pressure 132/92 H 02/02/25 10:59 Pulse Oximetry 99 02/02/25 10:59 Oxygen Delivery Room Air 02/02/25 10:59 Temperature 98.1 F 02/02/25 10:59 Pulse Rate 94 02/02/25 10:59 Respiratory Rate 16 02/02/25 10:59 Blood Pressure 132/92 H 02/02/25 10:59 Pulse Oximetry 99 02/02/25 10:59 Oxygen Delivery Room Air 02/02/25 10:59 Reviewed Medical Decision Making MDM Narrative Medical decision making narrative: Patient sitting comfortably in exam room. Nontoxic, vitals stable. Patient in no acute distress Right lower ribs, posterior lateral. X-ray shows 10th rib fracture. Patient is appropriate for outpatient treatment with close follow-up Discharge instructions reviewed with patient, as well as provided in writing per nursing staff. The instructions also include specific and strict return/GO TO THE ER as well as f/u information. All questions have been answered, and the patient deny any further questions with discharge and discharge plan. Some parts of this dictation were generated by voice recognition software and may contain typographical and/or grammatical inaccuracies. Differential Diagnosis Differential Diagnosis: Rib fracture, rib contusion Medical Records Medical records reviewed: Yes I reviewed the external patient's medical records. Vital Signs Vital Signs: Vital Signs Temperature 98.1 F 02/02/25 10:59 Pulse Rate 94 02/02/25 10:59 Respiratory Rate 16 02/02/25 10:59 Blood Pressure 132/92 H 02/02/25 10:59 Pulse Oximetry 99 02/02/25 10:59 Oxygen Delivery Room Air 02/02/25 10:59 Temperature 98.1 F 02/02/25 10:59 Pulse Rate 94 02/02/25 10:59 Respiratory Rate 16 02/02/25 10:59 Blood Pressure 132/92 H 02/02/25 10:59 Pulse Oximetry 99 02/02/25 10:59 Oxygen Delivery Room Air 02/02/25 10:59 Reviewed Lab Data Lab results reviewed: Yes I reviewed the patient's lab results. Labs: Reviewed Imaging Data Radiologist's impression: EXAMINATION: [id number] DATE: 02/02/2025 11:14 INDICATION: Right rib pain. Fall. TECHNIQUE: A frontal view of the chest and 2 views on 3 radiographs of the right ribs were obtained. COMPARISON: Chest 2 views 10/15/2024 FINDINGS: There is no pneumonia, pleural effusion, or pneumothorax. The heart size is normal. Surgical clips in the right upper quadrant are likely from cholecystectomy. There is a fracture of right 10th rib. IMPRESSION: 1. Right 10th rib fracture. Critical Care Time Critical Care Time Critical Care Time: No Discharge Plan Discharge Clinical Impression: Right rib fracture Qualifiers: Encounter type: initial encounter Rib fracture type: single rib Fracture type: closed Qualified Code(s): S22.31XA - Fracture of one rib, right side, initial encounter for closed fracture Patient Disposition: Home, Self-Care Condition: Stable Instructions: Antibiotic Form, Rib Fracture (ED) Additional Instructions: Today your x-ray showed fracture of your 10th rib Please follow-up with your primary care provider It is important to use the incentive spirometer 10 times an hour while awake. Take pain medications as prescribed Take ibuprofen 3 times a day Apply ice every 2-3 hours for 15-20 minutes. New or worsening symptoms go directly to the emergency room Patient Language: Anguillan Prescriptions: New hydrocodone-acetaminophen 5-325 mg tablet 1 tablet PO Q6H PRN (Reason: pain) Qty: 10 0RF No Action sertraline 50 mg tablet 50 mg PO . q.h.s. Qty: 30 11RF (DME) Peak Air Peak Flow Meter Device See Rx Instructions .ROUTE .MEDSUPPLY Qty: 1 0RF Rx Instructions: use daily (DME) VixOne Nebulizer-Adult Mask Misc See Rx Instructions .ROUTE .MEDSUPPLY Qty: 1 0RF Rx Instructions: As directed (DME) nebulizer accessories Misc See Rx Instructions .ROUTE .MEDSUPPLY Qty: 1 0RF Rx Instructions: As directed budesonide-formoterol [Symbicort] 160-4.5 mcg/actuation HFA aerosol inhaler 2 puff inhalation DAILY albuterol sulfate 1.25 mg/3 mL solution for nebulization 1.25 mg INHALATION Q4-6H PRN (Reason: shortness of breath or wheezing) Qty: 180 11RF albuterol sulfate [ProAir HFA] 90 mcg/actuation HFA aerosol inhaler 1 inh inhalation Q4H PRN (Reason: shortness of breath or wheezing) Qty: 8.5 11RF Rx Instructions: Ventolin is not covered. must be ProAir or Proventil albuterol inhaler for insurance purposes on [facility] Rx omeprazole 40 mg capsule,delayed release(DR/EC) 40 mg PO DAILY Qty: 30 11RF dextroamphetamine-amphetamine [Adderall] 10 mg tablet 10 mg PO BID Qty: 60 0RF Rx Instructions: administer doses at least 4-6 hours apart Follow-up/Referrals: Fly Arcos MD [Primary Care Provider] - 1 Week (EXPRESS [facility]ARE FOLLOW UP RIGHT RIB FRACTURE) Stand Alone Forms: Work/School Release IP Time of Disposition: 11:34
[2025-02-02 10:59] VITALS: BP 132/92; PULSE 94; RESP 16; TEMP 36.7; O2SAT 99
== END 2025-02-02 11:40 | disposition home or self-care (01) ==
PROVIDERS: Emergency Provider Nurse Practitioner; PCP Family Medicine
DX: S22.31XA Fracture of one rib, right side, initial encounter for closed fracture (principal); W01.0XXA Fall on same level from slipping, tripping and stumbling without subsequent striking against object, initial encounter; Z87.891 Personal history of nicotine dependence; K22.70 Barrett's esophagus without dysplasia; J45.909 Unspecified asthma, uncomplicated; Z86.16 Personal history of COVID-19; F90.9 Attention-deficit hyperactivity disorder, unspecified type; F41.9 Anxiety disorder, unspecified
CPT/HCPCS: 71101; 99213; G0463